=== PATIENT | female | born 1995 | race African-American/Black ===

== ENCOUNTER 2017-10-05 16:13 | Emergency (ER) | payer MEDICAID ==
[~2017-10-05] VITALS: Ht 154.9 cm; Wt 47.6 kg
[2017-10-05 16:55] LABS: Basophils # (auto) 0.1 uL; Eosinophils # (auto) 0.1 uL; Mean Corpuscular Hgb Conc. 31.3 g/dL (32.0-36.0); Monocytes # (auto) 0.7 uL; Nucleated Red Blood Cells % 0.1 %
[2017-10-05 16:58] LABS: Eosinophils % (auto) 1.8 % (0.0-7.0); Hematocrit 37.5 % (36.0-46.0); Hemoglobin 11.7 g/dL (12.2-16.2); Lymphocytes # (auto) 2.2 uL; Mean Corpuscular Hemoglobin 22.8 pg (28.0-32.0); Mean Corpuscular Volume 72.9 fL (80.0-100.0); Monocytes % (auto) 8.3 % (0.0-12.0); Neutrophils # (auto) 4.9 uL; Neutrophils % (auto) 60.9 % (37.0-80.0); Platelet Count (auto) 488 10^3/uL (140-450); Red Blood Cells 5.13 10^6/uL (4.0-5.20); Red Cell Distribution Width 21.4 % (11.8-14.3)
[2017-10-05 17:12] LABS: Albumin 4.4 g/dL (3.4-5.0); BUN/Creatinine Ratio 7.4; Bilirubin, Total 0.7 mg/dL (0.2-1.0); Calcium 9.1 mg/dL (8.5-10.1); Potassium 3.9 mmol/L (3.5-5.1); Total Protein 8.5 g/dL (6.4-8.2)
[2017-10-05 19:13] LABS: Urine Bacteria MOD /hpf (None Seen); Urine Blood Negative /uL (Negative); Urine Mucus FEW (None Seen); Urine Specific Gravity 1.019 (1.001-1.035); Urine WBC 21 /hpf (0 - 5)
[2017-10-05 20:25] VITALS: BP 111/73
== END 2017-10-05 21:21 | disposition home or self-care (01) ==
LOC: ER 16:18
DX: H92.01 Otalgia, right ear (principal); N39.0 Urinary tract infection, site not specified
CPT/HCPCS: 36415; 80053; 81001; 81025; 85025; 94761

== ENCOUNTER 2019-01-21 17:43 | Emergency (ER) | payer MEDICAID ==
[~2019-01-21] VITALS: Ht 152.4 cm; Wt 48.5 kg
[2019-01-21 18:42] LABS: Basophils # (auto) 0.1 uL; Basophils % (auto) 0.9 % (0.0-2.0); Eosinophils # (auto) 0.3 uL; Eosinophils % (auto) 4.7 % (0.0-7.0); Hematocrit 40.2 % (36.0-46.0); Hemoglobin 13.3 g/dL (12.2-16.2); Lymphocytes # (auto) 2.4 uL; Lymphocytes % (auto) 36.7 % (10.0-50.0); Mean Corpuscular Hemoglobin 27.3 pg (28.0-32.0); Mean Corpuscular Hgb Conc. 33.2 g/dL (32.0-36.0); Mean Corpuscular Volume 82.3 fL (80.0-100.0); Monocytes # (auto) 0.8 uL; Monocytes % (auto) 12.3 % (0.0-12.0); Neutrophils # (auto) 2.9 uL; Neutrophils % (auto) 45.4 % (37.0-80.0); Nucleated Red Blood Cells % 0.1 %; Platelet Count (auto) 366 10^3/uL (140-450); Red Blood Cells 4.88 10^6/uL (4.0-5.20); White Blood Cell 6.4 10^3/uL (4.4-10.8)
[2019-01-21 18:53] LABS: Urine Bacteria MANY /hpf (None Seen); Urine Blood 2+ /uL (Negative); Urine Mucus FEW (None Seen); Urine Specific Gravity 1.022 (1.001-1.035); Urine WBC 5 /hpf (0 - 5)
[2019-01-21 19:08] LABS: Chloride 108 mmol/L (98-107); Potassium 3.9 mmol/L (3.5-5.1); Sodium 140 mmol/L (136-145)
[2019-01-21 19:19] LABS: Alanine Aminotransferase 13 U/L (13-56); Albumin 3.9 g/dL (3.4-5.0); Alkaline Phosphatase 82 U/L (45-117); Anion Gap 4 (5-15); Aspartate Aminotransferase 12 U/L (15-37); BUN/Creatinine Ratio 14.8; Bilirubin, Total 0.6 mg/dL (0.2-1.0); Blood Urea Nitrogen 12 mg/dL (7-18); Calcium 8.7 mg/dL (8.5-10.1); Carbon Dioxide 28 mmol/L (21-32); GFR African American 113 mL/min; GFR Non-African American 93 mL/min; Glucose 92 mg/dL (74-106); Total Protein 7.6 g/dL (6.4-8.2)
[2019-01-21 22:57] VITALS: BP 116/52
== END 2019-01-21 23:16 | disposition home or self-care (01) ==
LOC: ER 17:43
DX: N20.0 Calculus of kidney (principal); N39.0 Urinary tract infection, site not specified
CPT/HCPCS: 36415; 74176; 80053; 81001; 81025; 84484; 85025